=== PATIENT | male | born 1930 | race Caucasian/White ===

== ENCOUNTER 2017-08-29 13:44 | Inpatient (IN) | payer MEDICARE, OTHER ==
[2017-08-29 14:52] LABS: BASO # 0.1 10^3/uL (0.0-0.2); BASO % 0.8 % (0.0-1.0); EOS # 0.1 10^3/uL (0.0-0.50); EOS % 2.4 % (0.0-3.0); HEMATOCRIT 47.2 % (42.0-52.0); HEMOGLOBIN 15.9 g/dl (13.5-17.5); IMMATURE GRANULOCYTE % 0.2 % (0-3.0); LYMPH # 1.5 10^3/uL (1.5-4.5); MEAN CORPUSCULAR HEMOGLOBIN 30.2 pg (27.0-33.0); MEAN CORPUSCULAR HGB CONC 33.7 g/dl (32.0-36.5); MEAN CORPUSCULAR VOLUME 89.6 fl (80.0-96.0); MONO # 0.6 10^3/uL (0.0-0.8); MONO % 9.8 % (0.0-5.0); NEUTROPHILS # 3.7 10^3/uL (1.8-7.7); NEUTROPHILS % 61.8 % (36.0-66.0); PLATELET COUNT, AUTOMATED 222 10^3/uL (150-450); RED BLOOD COUNT 5.27 10^6/uL (4.30-6.10); RED CELL DISTRIBUTION WIDTH 13.4 % (11.5-14.5); WHITE BLOOD COUNT 5.9 10^3/uL (4.0-10.0)
[2017-08-29 15:02] LABS: INR 0.92; PROTHROMBIN TIME 12.4 SECONDS (12.4-14.5)
[2017-08-29 15:03] LABS: PARTIAL THROMBOPLASTIN TIME 26.7 SECONDS (26.8-37.9)
[2017-08-29 15:17] LABS: ALBUMIN 3.8 GM/DL (3.2-5.2); ALBUMIN/GLOBULIN RATIO 1.03 (1.00-1.93); ALKALINE PHOSPHATASE 72 U/L (45-117); ANION GAP 5 MEQ/L (8-16); AST/SGOT 13 U/L (7-37); BILIRUBIN,DIRECT < 0.1 MG/DL (0.0-0.2); BILIRUBIN,TOTAL 0.4 MG/DL (0.2-1.0); CARBON DIOXIDE LEVEL 26 MEQ/L (21-32); CHLORIDE LEVEL 111 MEQ/L (98-107); CPK CREATINE PHOSPHOKINASE 283 U/L (39-308); CREATININE FOR GFR 1.11 MG/DL (0.70-1.30); GLOMERULAR FILTRATION RATE > 60.0 (>35); GLUCOSE, FASTING 161 MG/DL (70-100); POTASSIUM SERUM 4.2 MEQ/L (3.5-5.1); SODIUM LEVEL 142 MEQ/L (136-145); TOTAL PROTEIN 7.5 GM/DL (6.4-8.2); TROPONIN I < 0.02 NG/ML (< 0.10)
[2017-08-29 15:21] LABS: ALT/SGPT 19 U/L (12-78); BLOOD UREA NITROGEN 21 MG/DL (7-18); CK-MB VALUE MASS 6.3 NG/ML (<3.6); MB/CK RELATIVE INDEX 2.22 (< OR =4)
[2017-08-29] MEDS ORDERED: fentaNYL 100 MCG/2 ML INJECTION (J3010) IV (17:00)
[2017-08-29 18:21] LABS: FREE THYROXINE INDEX 3.1 % (1.4-3.8); T UPTAKE 36 % (33-40); THYROXINE (T4) 8.7 UG/DL (4.5-12.0)
[2017-08-29 18:35] LABS: CK-MB VALUE MASS 5.9 NG/ML (<3.6); CPK CREATINE PHOSPHOKINASE 287 U/L (39-308); MB/CK RELATIVE INDEX 2.05 (< OR =4); TROPONIN I < 0.02 NG/ML (< 0.10)
[2017-08-29] MEDS ORDERED: DEXTROSE 50% 50 ML SYRINGE IV (18:45)
[2017-08-29] MEDS ORDERED: GLUCOSE 4 GM CHEW TABLET PO (18:45)
[2017-08-29] MEDS ORDERED: GLUCAGON FOR INJ 1 MG VIAL (J1610) SC (18:45)
[2017-08-29] MEDS ORDERED: ONDANSETRON 4MG/2ML VIAL (J2405) IV (19:00)
[2017-08-29] MEDS ORDERED: ACETAMINOPHEN TAB 650MG DOSE (2X325MG) PO (19:00)
[2017-08-29] MEDS: HumaLOG INSULIN (NovoLOG) PER UNIT SC (21:00)
[2017-08-29] MEDS: SENOKOT S TAB PO ×3 (21:00)
[2017-08-29 21:28] LABS: BEDSIDE GLUCOSE 147 MG/DL (83-110)
[2017-08-29 23:55] LABS: CK-MB VALUE MASS 4.5 NG/ML (<3.6); CPK CREATINE PHOSPHOKINASE 255 U/L (39-308); MB/CK RELATIVE INDEX 1.76 (< OR =4); TROPONIN I < 0.02 NG/ML (< 0.10)
[2017-08-30 05:06] LABS: HEMATOCRIT 43.9 % (42.0-52.0); HEMOGLOBIN 15.2 g/dl (13.5-17.5); MEAN CORPUSCULAR HEMOGLOBIN 30.6 pg (27.0-33.0); MEAN CORPUSCULAR HGB CONC 34.6 g/dl (32.0-36.5); MEAN CORPUSCULAR VOLUME 88.3 fl (80.0-96.0); PLATELET COUNT, AUTOMATED 209 10^3/uL (150-450); RED BLOOD COUNT 4.97 10^6/uL (4.30-6.10); RED CELL DISTRIBUTION WIDTH 13.7 % (11.5-14.5)
[2017-08-30 05:34] LABS: ANION GAP 6 MEQ/L (8-16); BLOOD UREA NITROGEN 16 MG/DL (7-18); CALCIUM LEVEL 8.7 MG/DL (8.8-10.2); CARBON DIOXIDE LEVEL 26 MEQ/L (21-32); CHLORIDE LEVEL 112 MEQ/L (98-107); CK-MB VALUE MASS 3.5 NG/ML (<3.6); CPK CREATINE PHOSPHOKINASE 211 U/L (39-308); CREATININE FOR GFR 0.95 MG/DL (0.70-1.30); GLOMERULAR FILTRATION RATE > 60.0 (>35); GLUCOSE, FASTING 139 MG/DL (70-100); MAGNESIUM LEVEL 2.2 MG/DL (1.8-2.4); MB/CK RELATIVE INDEX 1.65 (< OR =4); POTASSIUM SERUM 3.7 MEQ/L (3.5-5.1); SODIUM LEVEL 144 MEQ/L (136-145); TROPONIN I < 0.02 NG/ML (< 0.10)
[2017-08-30] MEDS: HumaLOG INSULIN (NovoLOG) PER UNIT SC ×2 (07:30→12:00)
[2017-08-30] MEDS: SENOKOT S TAB PO (08:16)
[2017-08-30] MEDS: LEVEMIR (INSULIN DETEMIR) 1 UNITS/0.01ML SC (09:00)
[2017-08-30] MEDS: ENOXAPARIN 40 MG/0.4 ML SYRINGE (J1650) SC (09:00)
[2017-08-30 12:13] LABS: BEDSIDE GLUCOSE 209 MG/DL (83-110)
== END 2017-08-30 13:26 | disposition home or self-care (01) | DRG 310 ==
LOC: M ED 13:44 → M ED INP 18:48 → M PCU 21:01
DX: I44.1 Atrioventricular block, second degree (principal); E11.9 Type 2 diabetes mellitus without complications; R00.1 Bradycardia, unspecified; Z88.0 Allergy status to penicillin

== ENCOUNTER → 2019-07-08 | Outpatient (REF) | payer MEDICARE, OTHER ==
[~2019-07-08] MED LIST: TOUJ1.2I SC
== END ==
LOC: M LAB REF 12:25
PROVIDERS: ATTEND Family Medicine
DX: M10.9 Gout, unspecified (principal)

== ENCOUNTER → 2020-03-07 | Outpatient (REF) | payer MEDICARE, OTHER | LOC: M LAB REF 16:24 | PROVIDERS: ATTEND Family Medicine | DX: M10.9 Gout, unspecified (principal) ==

== ENCOUNTER → 2020-12-10 | Outpatient (CLI) | payer MEDICARE, OTHER ==
--- NOTE | 2020-12-10 11:33 | REP ---
INDICATION: SHORTNESS OF BREATH. COMPARISON: 08/29/2017 the latest prior TECHNIQUE: PA and lateral FINDINGS: The cardiomediastinal silhouette is within normal limits. The heart is not enlarged. Since the last examination a dual chamber bipolar pacemaker device has been placed. The leads appear contiguous and appropriate. The lung randall are clear. No acute patchy parenchymal opacities or pleural effusions have developed. The osseous structures are unchanged. IMPRESSION: There is no acute cardiopulmonary disease. <Electronically signed by Jh Brady > 12/10/20 112
== END ==
LOC: M WUC 10:49
PROVIDERS: ATTEND Family Medicine
DX: R06.02 Shortness of breath (principal)

== ENCOUNTER → 2021-02-06 | Outpatient (REF) | payer MEDICARE, OTHER | LOC: M LAB REF 18:10 | PROVIDERS: ATTEND Family Medicine | DX: M10.9 Gout, unspecified (principal) ==